=== PATIENT | female | born 1955 | race Caucasian/White ===

== ENCOUNTER 2024-11-11 19:35 | Emergency (ER) | payer MEDICARE, MEDICAID ==
--- NOTE | 2024-11-11 20:58 | Physician Documentation ---
History of Present Illness ~ Chief Complaint: Edema Stated Complaint: SWOLLEN ANKLES Time Seen by MD: 22:28 HPI This is a 69-year-old female with a history of DVT who presents with bilateral lower extremity edema and pain with left calf more swollen than right calf. Patient reports no shortness of breath or chest pain. Patient reports she that she did have a recent long road trip. Patient reports that she was previously on Eliquis which he tolerated well and was taken off that by primary care after resolution of previous DVT. Medication Reconciliation Allergies: Uncoded Allergies: CODINE (Adverse Reaction, Mild, Upset stomach, 11/11/24) Scheduled Apixaban (Eliquis), 1 TAB PO Q12H Review of Systems ROS As stated above in the HPI, otherwise all systems are reviewed and negative. Physical Exam Vital Signs: Temperature: 97.7, Source: Temporal, Heart Rate: 54, Respiratory Rate: 17, BP: 179/68, Pulse Oximetry: 97 General Appearance VITALS: Reviewed and as above. GENERAL: Alert, nontoxic appearing, no apparent distress. RESPIRATORY: No increased work of breathing, no respiratory distress, speaking in full clear sentences clear lung sounds in all fletcher CV: Bilateral lower extremities 1+ pitting edema with left calf slightly larger than right calf, regular rate and rhythm no murmur Progress Results/Orders Results/Orders Orders - RUT QIU Venous (11/11/24 20:10) Completed Orders - RUT QIU Venous (11/11/24 20:10) Apixaban Tablet (Eliquis Tablet) (11/11/24 23:10) Vital Signs 11/11/24 11/11/24 11/11/24 11/11/24 20:03 21:33 23:10 23:34 Temp 97.7 97.7 97.7 Pulse 54 60 Resp 17 18 B/P (MAP) 179/68 176/74 (108) Pulse Ox 97 95 O2 Flow Rate 0 Laboratory Tests Test 11/11/24 21:45 White Blood Count 8.6 Red Blood Count 4.50 Hemoglobin 13.0 Hematocrit 39.0 Mean Corpuscular Volume 86.8 Mean Corpuscular Hemoglobin 29.0 Mean Corpuscular Hemoglobin Concent 33.4 Red Cell Distribution Width 14.0 Platelet Count 231 Mean Platelet Volume 7.5 Neutrophils (%) (Auto) 43.0 Lymphocytes (%) (Auto) 36.9 Monocytes (%) (Auto) 11.9 Eosinophils (%) (Auto) 7.4 H Basophils (%) (Auto) 0.8 Neutrophils # (Auto) 3.7 Lymphocytes # (Auto) 3.2 Monocytes # (Auto) 1.0 H Eosinophils # (Auto) 0.6 Basophils # (Auto) 0.1 CBC Comment Erythrocyte Sedimentation Rate 7 Prothrombin Time 10.6 INR International Normalized Ratio 1.0 Activated Partial Thromboplast Time 27 D-Dimer 12.28 H D-Dimer Comment Coagulation Comments Sodium Level 141 Potassium Level 3.5 Chloride Level 106 Carbon Dioxide Level 30.6 Anion Gap 4 L Blood Urea Nitrogen 13 Creatinine 0.93 H Estimated GFR/1.73 m2 60 BUN/Creatinine Ratio 14.0 Glucose Level 104 Calcium Level 8.5 Magnesium Level 2.3 Total Bilirubin 0.4 Aspartate Amino Transf (AST/SGOT) 26 Alanine Aminotransferase (ALT/SGPT) 44 Alkaline Phosphatase 77 Troponin I High Sensitivity 17 C-Reactive Protein 0.12 Pro-B-Type Natriuretic Peptide 239 H Total Protein 7.1 Albumin 3.4 Globulin 3.7 Albumin/Globulin Ratio 0.9 L Chemistry Comments EKG/XRAY/CT/US/VASC/MRI Vascular : Impression Technologist: [employer] CLINICAL HISTORY: Lower extremity swelling and pain [id number] TECHNIQUE: Color and duplex doppler imaging of the bilateral lower extremity veins was performed. Vessel compression if possible was also performed. WID: COMPARISON: None FINDINGS: Prominent bilateral inguinal lymph nodes, Reactive appearing Right Lower Extremity: Right common femoral vein: Normal compressibility and flow. Right femoral vein: Normal compressibility and flow. Right popliteal vein: Normal compressibility and flow. Acute on chronic occlusive thrombus in the peroneal veins. Nonocclusive acute on chronic thrombus in the right posterior tibial vein and multiple gastrocnemius veins. Left Lower Extremity: Left common femoral vein: Normal compressibility and flow. Left femoral vein: Normal compressibility and flow. Left popliteal vein: Normal compressibility and flow. Acute on chronic occlusive thrombus in multiple left gastrocnemius veins and peroneal veins. IMPRESSION: 1. Acute on chronic occlusive thrombus in multiple left gastrocnemius veins and peroneal veins ; acute on chronic occlusive thrombus in right peroneal veins. 2. Nonocclusive acute on chronic thrombus in the right posterior tibial and multiple gastrocnemius veins. Dictated by:AIMEE CHAPIN MD Dictation date and time:11/11/242317 Electronically Signed by: AIMEE CHAPIN MD Date and Time: 11/11/242317 Transcribed: VRJOY Medical Decision Making Findings MSE performed in triage and patient returned to ED lobby by nursing staff to await available ED room, vascular ultrasound assess for DVT ordered. This 69 year old female with history of DVT presented with bilateral lower extremtiy swelling and pain, with swelling greatest in the left leg. It was reassuring patient reported no chest pain or shortness of breath to suggest PE. Given patient has history of DVT and reported recent long road trip a vascular ultrasound study was ordered. Vascular ultrasound was positive for acute on chronic DVT, patient has Hestia Score of 0 with low risk for bleeding and has previously tolerated Eliquis therefore qualifies for at home treatment with DOAC, with shared decision-making she will be started on Eliquis outpatient to follow up with the primary care provider, patient provided careful return to care precautions which she verbalized understanding. Differential Dx:Considerations: Include: beatty's cyst, Cellulitis, Congestive heart failure, Compartment syndrome, Deep venous thrombosis, Muscle spasm, Popliteal vein aneurysm, Renal faliure, Strain, Superfic thrombophlebitis, Venous insufficiency, Other (Pulmonary Embolism) Departure Time of Disposition: 23:07 Disposition: 01 HOME / SELF CARE / HOMELESS Impression: Primary Impression: DVT, recurrent, lower extremity, acute Qualified Codes: I82.409 - Acute embolism and thrombosis of unspecified deep veins of unspecified lower extremity Condition: Improved Discharge Instructions: Deep Vein Thrombosis Referrals: NO PRIMARY CARE PROVIDER (PCP) Prescriptions Apixaban (ELIQUIS) 5 Mg Tablet 1 TAB PO Q12H for 30 Days, #74 TAB 0 Refills Take two tabs twice daily for 1st seven days, Then one tab twice a day after the 1st seven days. Prov: RUT QIU 11/11/24 Education Educated: Patient Educated regarding: diagnosis, treatment, prognosis, need for follow up Signature Scribe Signature: No Scribe Attestation: The note accurately reflects work and decisions made by me.JENNY Jung 11/13/24 14:33 RUT QIU [facility] Nov 11, 2024 20:58
[2024-11-11 21:52] LABS: MEAN PLATELET VOLUME 7.5 FL (7.4-10.4); RED CELL DISTRIBUTION WIDTH 14.0 % (11.5-14.5)
[2024-11-11 22:06] LABS: CREATININE 0.93 MG/DL (0.40-0.90); TOTAL CARBON DIOXIDE 30.6 MMOL/L (24-32); eGFR 60 ML/MIN
[2024-11-11 22:11] LABS: APTT 27 SECONDS (22-32); INR 1.0 INR
[2024-11-11 22:13] LABS: PRO BRAIN NATRIURETIC PEPTIDE 239 PG/ML (0-125)
[2024-11-11] MEDS ORDERED: APIX5TAB3 PO (23:07)
--- NOTE | 2024-11-11 23:20 | VASCULAR REPORT ---
CLINICAL HISTORY: Lower extremity swelling and pain [id number] TECHNIQUE: Color and duplex doppler imaging of the bilateral lower extremity veins was performed. Ves taras compression if possible was also performed. WID: COMPARISON: None FINDINGS: Prominent bilateral inguinal lymph nodes, Reactive appearing Right Lower Extremity: Right common femoral vein: Normal compressibility and flow. Right femoral vein: Normal compressibility and flow. Right popliteal vein: Normal compressibility and flow. Acute on chronic occlusive thrombus in the peroneal veins. Nonocclusive acute on chronic thrombus in the right posterior tibial vein and multiple gastrocnemius veins. Left Lower Extremity: Left common femoral vein: Normal compressibility and flow. Left femoral vein: Normal compressibility and flow. Left popliteal vein: Normal compressibility and flow. Acute on chronic occlusive thrombus in multiple left gastrocnemius veins and peroneal veins. IMPRESSION: 1. Acute on chronic occlusive thrombus in multiple left gastrocnemius veins and peroneal veins ; acut e on chronic occlusive thrombus in right peroneal veins. 2. Nonocclusive acute on chronic thrombus in the right posterior tibial and multiple gastrocnemius ve ins.
[2024-11-11 23:34] VITALS: BP 176/74; PULSE 60; RESP 18; TEMP 97.7; O2SAT 95
== END 2024-11-11 23:43 | disposition home or self-care (01) ==
LOC: ER 19:36
DX: I82.451 Acute embolism and thrombosis of right peroneal vein (principal); Z79.01 Long term (current) use of anticoagulants
CPT/HCPCS: 36415; 80053; 83735; 83880; 84484; 85025; 85379; 85610; 85651; 85730; 86140; 93970; 99284